=== PATIENT | male | born 1955 ===

== ENCOUNTER → 2018-06-18 17:34 | Outpatient (REF) | payer BC, SELFPAY ==
[2018-06-18 18:16] LABS: Rheumatoid Factor 17.2 IU/mL (<12.0)
[2018-06-18 19:04] LABS: Erythrocyte Sedimentation Rate 3 MM/HR (0-15)
[2018-06-20 19:41] LABS: ANA Screen, IFA Negative (Negative)
== END ==
LOC: LAB 17:34
PROVIDERS: Family Provider Family Medicine Geriatric Medicine; PCP Family Medicine Geriatric Medicine; Visit Provider Family Medicine Geriatric Medicine
DX: M25.50 Pain in unspecified joint (principal)
CPT/HCPCS: 36415; 84550; 85651; 86038; 86430